=== PATIENT | male | born 1950 | race Caucasian/White ===

== ENCOUNTER → 2016-10-13 | Outpatient (CLI) | payer BC ==
[2016-10-13 11:17] LABS: ALT/SGPT 23 U/L (12-78); AST/SGOT 21 U/L (15-37); BLOOD UREA NITROGEN 19 mg/dl (7-18); BUN/CREATININE RATIO 17.6 (10-20); CARBON DIOXIDE 26 mmol/L (21-32); CHLORIDE 108 mmol/L (98-107); CHOLESTEROL 151 mg/dl (0-200); GLUCOSE 101 mg/dl (70-99); POTASSIUM 4.1 mmol/L (3.5-5.1); SODIUM 142 mmol/L (136-145); TRIGLYCERIDES 107 mg/dl (0-150); VERY LOW DENSITY LIPOPROT CALC 21 mg/dl
[2016-10-13 11:22] LABS: ALB/GLOB RATIO 1.2 (0.9-2); ALKALINE PHOSPHATASE 57 U/L (45-117); CHOLESTEROL/HDL RATIO 3.4; HDL CHOLESTEROL 45 mg/dl; LDL CHOLESTEROL CALCULATED 85 mg/dl
[2016-10-13 11:57] LABS: CALCIUM 9.5 mg/dl (8.5-10.1)
== END | disposition home or self-care (01) ==
LOC: C.LABBC 08:39
PROVIDERS: ATTEND Internal Medicine
DX: Z00.00 Encounter for general adult medical examination without abnormal findings (principal)

== ENCOUNTER → 2016-11-09 | Outpatient (CLI) | payer BC ==
--- NOTE | 2016-11-09 14:07 | DIAGNOSTIC IMAGING REPORT ---
CHEST 2 VIEWS ROUTINE CLINICAL HISTORY: FEVER COMPARISON STUDY: No previous studies for comparison. FINDINGS: The heart is normal in size. There is no failure. There are minimal opacities within the lingula, atelectatic versus inflammatory. There are no pleural effusions.[ IMPRESSION: Minimal lingular opacities, atelectatic versus inflammatory. Electronically signed by: Gaudencio Garcia M.D. 11/09/2016 2:05 PM Dictated Date/Time: 11/09/2016 2:04 PM
[2016-11-09 16:50] LABS: HEMATOCRIT 50.8 % (42-52); MEAN CELL VOLUME 92.4 fL (80-100); MEAN CORPUSCULAR HEMOGLOBIN 31.5 pg (25-34); MEAN CORPUSCULAR HGB CONC 34.1 g/dl (32-36); MEAN PLATELET VOLUME 11.5 fL (7.4-10.4); PLATELET COUNT 113 K/uL (130-400); WHITE BLOOD COUNT 3.29 K/uL (4.8-10.8)
[2016-11-09 17:02] LABS: ALT/SGPT 105 U/L (12-78); AST/SGOT 119 U/L (15-37); BLOOD UREA NITROGEN 16 mg/dl (7-18); CALCIUM 8.4 mg/dl (8.5-10.1); CARBON DIOXIDE 28 mmol/L (21-32); CHLORIDE 103 mmol/L (98-107); GLUCOSE 128 mg/dl (70-99); POTASSIUM 4.2 mmol/L (3.5-5.1); SODIUM 138 mmol/L (136-145)
[2016-11-09 17:04] LABS: ALB/GLOB RATIO 0.9 (0.9-2); ALKALINE PHOSPHATASE 83 U/L (45-117)
[2016-11-09 20:09] LABS: LYME DISEASE AB IGG NEG (NEG); LYME DISEASE AB IGM NEG (NEG)
== END | disposition home or self-care (01) ==
LOC: C.RADBC 13:29
PROVIDERS: ATTEND Physician Assistant
DX: R50.9 Fever, unspecified (principal); R53.83 Other fatigue; M25.50 Pain in unspecified joint

== ENCOUNTER → 2016-11-17 | Outpatient (CLI) | payer BC ==
[2016-11-17 10:47] LABS: HEMATOCRIT 46.2 % (42-52); MEAN CELL VOLUME 89.7 fL (80-100); MEAN CORPUSCULAR HEMOGLOBIN 29.7 pg (25-34); MEAN CORPUSCULAR HGB CONC 33.1 g/dl (32-36); MEAN PLATELET VOLUME 10.6 fL (7.4-10.4); PLATELET COUNT 291 K/uL (130-400); RED BLOOD COUNT 5.15 M/uL (4.7-6.1); WHITE BLOOD COUNT 6.13 K/uL (4.8-10.8)
[2016-11-17 11:01] LABS: ALT/SGPT 35 U/L (12-78); AST/SGOT 33 U/L (15-37); BLOOD UREA NITROGEN 18 mg/dl (7-18); BUN/CREATININE RATIO 14.7 (10-20); CARBON DIOXIDE 24 mmol/L (21-32); CHLORIDE 108 mmol/L (98-107); GLUCOSE 98 mg/dl (70-99); POTASSIUM 3.8 mmol/L (3.5-5.1); SODIUM 142 mmol/L (136-145)
[2016-11-17 11:02] LABS: ALB/GLOB RATIO 0.9 (0.9-2); ALKALINE PHOSPHATASE 68 U/L (45-117)
[2016-11-17 12:12] LABS: CALCIUM 8.6 mg/dl (8.5-10.1)
== END | disposition home or self-care (01) ==
LOC: C.LABBC 07:58
PROVIDERS: ATTEND Internal Medicine
DX: Z00.00 Encounter for general adult medical examination without abnormal findings (principal); R79.9 Abnormal finding of blood chemistry, unspecified